=== PATIENT | male | born 1955 | race Caucasian/White ===

== ENCOUNTER 2017-07-23 05:36 | Day surgery (SDC) | END 2017-07-23 14:00 | disposition home or self-care (01) | DX: M25.371 Other instability, right ankle (principal); M25.871 Other specified joint disorders, right ankle and foot; M24.071 Loose body in right ankle; S96.811A Strain of other specified muscles and tendons at ankle and foot level, right foot, initial encounter; M65.871 Other synovitis and tenosynovitis, right ankle and foot; X58.XXXA Exposure to other specified factors, initial encounter; Y93.9 Activity, unspecified; Y92.9 Unspecified place or not applicable; Y99.9 Unspecified external cause status | CPT/HCPCS: 27658; 27695; 29898; 73610; 80053; 85025; 85610; 85730; 88304; 88311; J0690; J1100; J1170; J2250; J2405; J2795; J3010; J7999 ==